=== PATIENT | male | born 1965 | race Caucasian/White ===

== ENCOUNTER 2018-09-29 08:33 | Emergency (ER) | payer BC ==
[2018-09-29 08:41] VITALS: BP 141/82
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
== END 2018-09-29 09:09 | disposition home or self-care (01) ==
LOC: UCEAST 08:33
DX: J40 Bronchitis, not specified as acute or chronic (principal); I10 Essential (primary) hypertension; F32.9 Major depressive disorder, single episode, unspecified; E78.5 Hyperlipidemia, unspecified; Z79.899 Other long term (current) drug therapy
CPT/HCPCS: 99212; G0463

== ENCOUNTER 2018-12-21 14:40 | Emergency (ER) | payer BC ==
[2018-12-21 14:55] VITALS: BP 154/88
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
== END 2018-12-21 15:03 | disposition home health service (06) ==
LOC: UCEAST 14:40
DX: R20.0 Anesthesia of skin (principal); I10 Essential (primary) hypertension
CPT/HCPCS: 99211; G0463

== ENCOUNTER 2018-12-21 15:20 | Observation (INO) | payer BC ==
[2018-12-21] MEDS ORDERED: NS 0.9% 1000 ML** 1,000 ML IV ONE (15:25)
[2018-12-21] MEDS ORDERED: Alteplase* 100 MG VIAL ONE (15:29)
[2018-12-21 15:34] LABS: ABS Basophils 0.1 10^3/ul (0-0.2); ABS Eosinophils 0.3 10^3/ul (0-0.6); ABS Lymphocytes 1.2 10^3/ul (1.0-4.8); ABS Neutrophils 8.6 10^3/ul (1.5-7.7); Eosinophil % 2.9 %; Hematocrit 50 % (42-52); Hemoglobin 16.4 g/dL (14.0-18.0); Mean Corpuscular HGB Conc 33 g/dL (31-36); Mean Corpuscular Hemoglobin 29 pg (27-31); Mean Corpuscular Volume 89 fL (80-94); Platelet Count 310 10^3/uL (150-450); Red Blood Count 5.67 10^6 /uL (4.18-5.48); Red Cell Distribution Width 15 % (10-15); White Blood Count 11.1 10^3/uL (3.5-10.8)
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
[2018-12-21 15:44] LABS: Activated Partial Thrombo Time 29.4 seconds (26.0-38.0); INR 1.01 (0.82-1.09)
[2018-12-21 15:53] LABS: ALT 46 U/L (7-52); AST 53 U/L (13-39); Albumin/Globulin Ratio 1.3 (1-3); Alkaline Phosphatase 63 U/L (34-104); Anion Gap 6 mmol/L (2-11); BUN/Creatinine Ratio 13.8 (8-20); Blood Urea Nitrogen 23 mg/dL (6-24); CO2 Carbon Dioxide 26 mmol/L (22-32); Calcium 9.4 mg/dL (8.6-10.3); Chloride 107 mmol/L (101-111); Cholesterol 107 mg/dL; EGFR African American 52.1 (>60); EGFR Non-African American 43.1 (>60); Glucose 106 mg/dL (70-100); HDL Cholesterol 36.7 mg/dL; LDL Cholesterol 50 mg/dL; Potassium 4.2 mmol/L (3.5-5.0); Sodium 139 mmol/L (135-145); Triglycerides 100 mg/dL
[2018-12-21 15:57] LABS: Troponin I 0.05 ng/mL (<0.04)
[2018-12-21] MEDS ORDERED: Aspirin 81 mg CHEW TAB* 81 MG TAB.CHEW PO ONE (16:01)
[2018-12-21] MEDS ORDERED: Iodixanol* (CONTRAST) 320 MG/ML 100 ML SDV IV ONE (16:11)
[2018-12-21 19:57] LABS: Troponin I 0.05 ng/mL (<0.04)
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
[2018-12-21 23:26] LABS: Troponin I 0.05 ng/mL (<0.04)
[2018-12-22 06:48] LABS: ABS Basophils 0.1 10^3/ul (0-0.2); ABS Eosinophils 0.4 10^3/ul (0-0.6); ABS Lymphocytes 1.3 10^3/ul (1.0-4.8); ABS Monocytes 0.7 10^3/ul (0-0.8); ABS Neutrophils 4.6 10^3/ul (1.5-7.7); Hematocrit 46 % (42-52); Hemoglobin 15.3 g/dL (14.0-18.0); Lymphocyte % 18.8 %; Mean Corpuscular HGB Conc 33 g/dL (31-36); Mean Corpuscular Hemoglobin 29 pg (27-31); Mean Corpuscular Volume 88 fL (80-94); Mean Platelet Volume 8.3 fL (7.4-10.4); Nucleated Red Blood Cells % 0.1; Platelet Count 251 10^3/uL (150-450); Red Blood Count 5.22 10^6 /uL (4.18-5.48); Red Cell Distribution Width 15 % (10-15)
[2018-12-22 06:50] LABS: Calcium 8.8 mg/dL (8.6-10.3); Potassium 4.2 mmol/L (3.5-5.0)
[2018-12-22 06:56] LABS: BUN/Creatinine Ratio 14.8 (8-20); EGFR African American 66.6 (>60); EGFR Non-African American 55.1 (>60); HDL Cholesterol 33.7 mg/dL
[2018-12-22] MEDS ORDERED: Valsartan TAB* 160 MG PO SCH (09:00)
[2018-12-22] MEDS ORDERED: Sertraline* 50 MG TAB PO SCH (09:00)
[2018-12-22] MEDS ORDERED: Spironolactone TAB* 25 MG PO SCH (09:00)
[2018-12-22] MEDS ORDERED: Atorvastatin* 10 MG TAB PO SCH (09:00)
[2018-12-22] MEDS ORDERED: Aspirin 81 mg CHEW TAB* 81 MG TAB.CHEW PO SCH (09:00)
--- NOTE | 2018-12-22 11:39 | ECHO ---
*[facility]* [place] [address] Fax #: [phone] Patient: Delfino, Height: 72 in / Waldemar Goss 182.9 cm : 1965 Weight: 249.5 lb / Study Date: 12/22/2018 113.4 kg Age: 53 BP: 140 / 75 Gender: M BMI/BSA: 33.9 kg/m^2 HR: 76 bpm / 2.34 m^2 *Licensed Sales Assistant: * Lissette Munroe [facility] *Referring Physician: * Maegan Santiago *Reading Physician: * Rosendo Castillo MD Indications: CVA. History: Functional status: Renal failure. Risk factors: Hypertension. Conclusions Summary: 1. Left ventricle: The cavity size is normal. There is moderate concentric hypertrophy. Systolic function is normal. The estimated ejection fraction is 55-60%. Wall motion is normal; there are no regional wall motion abnormalities. 2. Left atrium: The atrium is severely dilated. 3. Right atrium: The atrium is severely dilated. 4. Functionally benign heart valves. 5. Aortic root: The aortic root is moderately dilated. 6. Ascending aorta: The ascending aorta is mildly dilated. 7. Atrial septum: No defect or patent foramen ovale is identified. 8. There is no prior echocardiogram available to compare with at this time. Study data: Procedure: Transthoracic echocardiography was performed. Image quality was good. A bubble study was performed. Images 93 and 94. Complete 2D, spectral Doppler, and color flow Doppler. Location: Bedside. Patient status: Inpatient. Patient room number: 435. Rhythm: Normal sinus rhythm with PVC's. Findings Left ventricle: The cavity size is normal. There is moderate concentric hypertrophy. Systolic function is normal. The estimated ejection fraction is 55-60%. Wall motion is normal; there are no regional wall motion abnormalities. Left ventricular diastolic function parameters are indeterminate. Right ventricle: The cavity size is at the upper limits of normal. Systolic function is low normal. Left atrium: The atrium is severely dilated. Right atrium: The atrium is severely dilated. Atrial septum: No defect or patent foramen ovale is identified. A PFO is not demonstrated by color Doppler or agitated saline contrast. Mitral valve: The leaflets are mildly thickened. There is trace to mild regurgitation. Aortic valve: The valve is trileaflet. The leaflets are mildly thickened. There is no evidence of stenosis. There is no significant regurgitation. Tricuspid valve: The leaflets are normal thickness. There is trace to mild regurgitation. Pulmonic valve: The leaflets are normal thickness. There is no evidence of stenosis. There is trivial regurgitation. Aorta: Aortic root: The aortic root is moderately dilated. Ascending aorta: The ascending aorta is mildly dilated. Aortic arch: The aortic arch is appears normal. Pericardium: There is no significant pericardial effusion. Pulmonary arteries: Not well visualized. Systolic pressure can not be accurately estimated. Systemic veins: Inferior vena cava: The vessel is normal in size. The respirophasic diameter changes are in the normal range (>= 50%). Measurements Left ventricle Value Ref Aortic valve Value Ref ANDREA, LAX 5.5 cm 4.2 - 5.8 Kateryna diam, ED 2.7 cm ----- ESD, LAX (H) 4.1 cm 2.5 - 4.0 Peak v, S 1.37 m/sec ----- FS, LAX 25 % 25 - 43 VTI, S 20.9 cm ----- PW, ED, LAX (H) 1.6 cm 0.6 - 1.0 Mean grad, S 4.0 mm Hg ----- FS (L) 24 % 25 - 43 Peak grad, S 8.0 mm Hg ----- PW, ED (H) 1.6 cm 0.6 - 1.0 LVOT/AV, VTI ratio 0.81 ----- E', lat kateryna, TDI (L) 7.6 cm/sec >=10.0 E/e', lat kateryna, 9 Mitral valve Value Ref TDI Peak E 0.66 m/sec ----- E', med kateryna, TDI 7.5 cm/sec >=7.0 Peak A 0.5 m/sec --- -- E/e', med kateryna, 9 Decel time 380 ms ----- TDI Peak E/A ratio 1.3 ----- E', avg, TDI 7.6 cm/sec E/e', avg, TDI 9 <=14 Pulmonic valve Value Ref Peak v, S 1.06 m/sec ----- LVOT Value Ref Peak grad, S 4.0 mm Hg ----- Peak loc, S 1.06 m/sec VTI, S 17.0 cm Tricuspid valve Value Ref Mean grad, S 2 mm Hg TR peak v 2.34 m/sec <=2.8 Peak RV-RA grad, S 22 mm Hg ----- Ventricular septum Value Ref Max TR loc 2.23 m/sec ----- IVS, ED (H) 1.4 cm 0.6 - 1.0 Aortic root Value Ref Right ventricle Value Ref Root diam 4.3 cm <4.4 ANDREA, LAX 3.7 cm Pressure, S 25 mm Hg Ascending aorta Value Ref AAo AP diam, S 3.8 cm ----- Left atrium Value Ref AP dim, ES 3.90 cm 3.00 - Aortic arch Value Ref 4.00 Arch diam 2.3 cm ----- ML dim, A4C 5.3 cm SI dim, A4C 5.9 cm Decending aorta Value Ref Vol/bsa, ES, 1-p 34 ml/m^2 12 - 37 Jewel peak loc 0.98 m/sec ----- A4C Vol/bsa, ES, A/L (H) 58 ml/m^2 16 - 34 Pulmonary artery Value Ref Pressure, S 21.0 mm Hg ----- Right atrium Value Ref SI dim, ES (H) 6.8 cm 3.4 - 5.3 Inferior vena cava Value Ref ML dim, ES, A4C (H) 5.9 cm 2.6 - 4.4 Diam 2.0 cm ----- SI dim, ES, A4C (H) 6.8 cm 3.4 - 5.3 Estimated RAP 3 mm Hg Legend: (L) and (H) manuel values outside specified reference range. Prepared and electronically signed by Rosendo Castillo MD 12/22/2018 11:39
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
[2018-12-22 16:58] VITALS: BP 149/88
--- NOTE | 2018-12-22 17:30 | DS ---
DISCHARGE SUMMARY: DATE OF ADMISSION: 12/21/18 DATE OF DISCHARGE: 12/22/18 PROVIDER: Xander Egan NP. ATTENDING PHYSICIAN: Dr. Saba * (report dictated by Xander Egan NP). PRIMARY CARE PROVIDER: Dr. Singh. REFERRING TO DRY CLEANING ATTENDANT: Neo Brown. INPATIENT CONSULTS: Neurologist, Dr. Reyes. DISCHARGE DIAGNOSES: 1. Left facial numbness, possible transient ischemic attack. 2. Hypertension. 3. Severe left and right atrial dilatation. 4. Indeterminate troponin, possibly secondary to chronic kidney disease. SECONDARY DIAGNOSES: 1. Chronic kidney disease. 2. History of hyperlipidemia. DISCHARGE MEDICATIONS: 1. Spironolactone 100 mg p.o. daily. 2. Zoloft 50 mg p.o. daily. 3. Olmesartan 40 mg p.o. daily. 4. Crestor 10 mg p.o. daily. 5. Aspirin 81 mg p.o. daily. HISTORY OF PRESENT ILLNESS AND HOSPITAL COURSE: Please see history and physical by this author for full admission details, but in summary, this is a 53 -year-old male with a past medical history as stated above who presented to the emergency department on 12/21/18 with complaints of left facial numbness. The patient reported he first had symptoms of left facial numbness 4 days prior to admission and which had lasted for approximately 15 seconds and resolved. He had no other symptoms. Then, the day of admission, he reports he had the same left cheek numbness; however, this time reported that it was much stronger lasting 2 to 3 hours. He came to the emergency department for further evaluation. In the emergency department, he underwent a CT scan of the brain, which showed no acute intracranial pathology, but did show mild sinus mucosal inflammatory disease with air-fluid levels in the maxillary sinus. The patient denied any sinus pain, pressure, nasal congestion, or rhinorrhea. He denied any recent illnesses. Denies a history of sinusitis in the past. He was admitted to the hospitalist service to telemetry for TIA/stroke workup. He underwent a head CTA, which showed impression: 1. "No aneurysm, vascular malformation, occlusion, or stenosis of the visualized intracranial circulation. 2. No internal carotid artery stenosis by NASCET criteria." Transthoracic echocardiogram showin. "Left ventricle: The cavity size is normal. There is moderate concentric hypertrophy. Systolic function is normal. The estimated ejection fraction is 55% to 60%. Wall motion is normal. There are no regional wall motion abnormalities. 2. Left atrium: The atrium is severely dilated. 3. Right atrium: The atrium is severely dilated. 4. Functionally benign heart valves. 5. Aortic root: The aortic root is moderately dilated. 6. Ascending aorta is mildly dilated. 7. Atrial septum: No defect or patent foramen ovale is identified." The patient was seen in consultation by neurologist, Dr. Reyes, who suspects this could possibly be a TIA. He recommends the patient be discharged home on an aspirin 81 mg daily. The neurologist does not feel that the patient needs to stay in the hospital for potential MRI of the brain. The patient has had right cheek facial reconstruction and reports he has a right steel plate in his cheek, but is not sure if this is MRI compatible and due to it being the weekend , we were unable to get records. Again, Dr. Reyes does not feel that he requires to stay in the hospital to undergo screening tomorrow and this can be done next week as an outpatient. I have encouraged the patient to get his records from [facility] from Dr. Castle. The patient was also found to have a troponin of 0.05. He was monitored on telemetry with no noted arrhythmias. His troponins were trended, which all 3 were 0.05 in the setting of chronic kidney disease. I have referred the patient to Dr. Hendrickson, dry house worker at [place], for further cardiac workup as the patient may benefit from a cardiac stress test as well as what was found on his echocardiogram is concerning with the severely dilated left and right atriums. It was discussed with the patient to not heavily exercise as he did report the day prior to coming to the hospital, he did have a "hardcore cardiac workout." He also reports that he lifts weights, but states that he no longer lifts very heavy weights. The patient was instructed that he could walk only and was recommended no heavy exercise until he follows up with the dry house worker and is cleared. The patient has done well throughout hospitalization. He has had no further episodes of left cheek numbness. He has remained hemodynamically stable. His systolic blood pressures have ranged from 135 to 153 over 64 to 86. Today, on discharge, the patient's blood pressure is 135/78. This should be followed up as an outpatient. He may need further adjustment in his antihypertensive medications. DIAGNOSTIC STUDIES/LAB DATA: Fasting lipid profile: Triglycerides 50, cholesterol 94, LDL 50, HDL 33. Chemistry profile showing sodium 139, potassium 4.2, chloride 110, carbon dioxide 23, anion gap 6, BUN 20, creatinine 1.35, glucose 97, calcium 8.3. CBC: WBCs 11.1, HGB 16.4, HCT 50, platelet count 310. INR 1.01. Chest x-ray, impression: No active cardiopulmonary disease. EKG: Sinus rhythm with a rate of 80 with left ventricular hypertrophy. No EKG on file for comparison. REVIEW OF SYSTEMS: A 14-point review of systems was performed. All the pertinent positives and negatives are mentioned in the history of present illness; otherwise, are negative. PHYSICAL EXAMINATION: Vital Signs: Temperature 98.2, heart rate 80, respirations 18, O2 sat 95% on room air, blood pressure 135/78. General Appearance: A well- developed 53-year-old male, alert and oriented x3, sitting in a chair, in no acute distress. HEENT: Head is normocephalic, atraumatic. Pupils are equal and reactive to light. Oropharynx is clear. Moist mucous membranes. Neck is supple. Cardiac: S1, S2. Regular rate and rhythm. No murmur, rub, or gallop appreciated. Lungs are clear to auscultation bilaterally. Good aeration throughout. Abdomen: Soft, nontender, nondistended. Normal bowel sounds throughout. Extremities: Moves all extremities equally. Strength is 5/5 throughout. Bilateral knees have healed scars. Neuro: Cranial nerves II through XII are grossly intact. No focal deficits noted. DISCHARGE PLAN: 1. The patient was instructed to call Dr. Singh' office tomorrow, Sunday; , for a followup appointment next week. Again, he has been ordered an MRI of the brain without contrast; however, he will need to undergo screening as it is unclear if due to the plate in his right cheek, this may be a contraindication. 2. Follow up with Dr. Reyes. The patient was instructed to call his office for a followup appointment. 3. The patient has been referred to dry house worker, Dr. Hendrickson, for further cardiac workup. DISPOSITION: The patient is stable for discharge to home. TIME SPENT: Approximately 60 minutes were spent on this discharge. XANDER EGAN NP [id number]/CPS #: [id number] TODD
== END 2018-12-22 16:30 | disposition home or self-care (01) ==
LOC: ED 15:20 → MEDTELE 16:50
PROVIDERS: ADMIT Internal Medicine; ATTEND Internal Medicine
DX: R20.0 Anesthesia of skin (principal); I10 Essential (primary) hypertension; I51.7 Cardiomegaly; I12.9 Hypertensive chronic kidney disease with stage 1 through stage 4 chronic kidney disease, or unspecified chronic kidney disease; N18.9 Chronic kidney disease, unspecified; E78.5 Hyperlipidemia, unspecified; Z79.82 Long term (current) use of aspirin
CPT/HCPCS: 36415; 70450; 70496; 70498; 71045; 80048; 80053; 80061; 83605; 84484; 85025; 85610; 85730; 86850; 86900; 86901; 93005; 93306; 96360; 96361; 99285; A9270-GY; G0378; J2997; Q9967